=== PATIENT | female | born 1995 | race Two or more races ===

== ENCOUNTER 2016-11-26 13:14 | Emergency (ER) | payer SELFPAY ==
[~2016-11-26] VITALS: Ht 160 cm; Wt 42.6 kg
[2016-11-26 13:49] LABS: Urine RBC None Seen /hpf (0 - 4)
[2016-11-26 14:12] LABS: Urine Bilirubin Negative (Negative); Urine Color Yellow (Yellow); Urine Glucose Normal (Normal); Urine Ketone Negative (Negative); Urine Nitrite Negative (Negative); Urine Squamous Epithelial Cell FEW /hpf (<5); Urine Urobilinogen Normal (Negative)
[2016-11-26 14:19] LABS: Urine Blood 2+ /uL (Negative)
[2016-11-26 16:13] VITALS: BP 107/71
== END 2016-11-26 16:58 | disposition home or self-care (01) ==
LOC: ER 13:14
DX: O20.0 Threatened abortion (principal); O23.41 Unspecified infection of urinary tract in pregnancy, first trimester; Z3A.01 Less than 8 weeks gestation of pregnancy
CPT/HCPCS: 36415; 76801; 76817; 81001; 84702